=== PATIENT | female | born 1995 | race African-American/Black ===

== ENCOUNTER 2024-10-14 01:43 | Emergency (ER) | payer OTHER, MEDICAID, SELFPAY ==
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
[2024-10-14 01:54] VITALS: BP 114/75; PULSE 69; RESP 16; TEMP 36.7; O2SAT 100; BMI 28.7
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
[2024-10-14 05:42] VITALS: BP 114/75; PULSE 69; RESP 16; TEMP 36.7; O2SAT 100
== END 2024-10-14 05:10 | disposition home or self-care (01) ==
PROVIDERS: Emergency Provider Internal Medicine; PCP Physician Assistant Medical
DX: O9A.212 Injury, poisoning and certain other consequences of external causes complicating pregnancy, second trimester (principal); R10.2 Pelvic and perineal pain; Z3A.23 23 weeks gestation of pregnancy; Y04.2XXA Assault by strike against or bumped into by another person, initial encounter; Y93.89 Activity, other specified; Y92.231 Patient bathroom in hospital as the place of occurrence of the external cause; Y99.0 Civilian activity done for income or pay
CPT/HCPCS: 76815; 99282; 99284

== ENCOUNTER → 2024-10-14 03:44 | Outpatient (BNV) | payer OTHER, MEDICAID, SELFPAY | PROVIDERS: Emergency Provider Internal Medicine; PCP Physician Assistant Medical; Visit Provider Specialist | DX: O71.9 Obstetric trauma, unspecified (principal) | CPT/HCPCS: 76815 ==